=== PATIENT | male | born 1995 | race Caucasian/White ===

== ENCOUNTER 2020-05-19 14:31 | Emergency (ER) | payer BC, SELFPAY ==
--- NOTE | ~2020-05-19 | CT_ITS ---
EXAMINATION: CT brain wo con DATE: 05/19/2020 15:26 INDICATION: Seizure. TECHNIQUE: Computed tomography (CT) of the head was performed without intravenous contrast. The mA wa s adjusted according to patient size. Iterative reconstruction technique was employed. The dose-lengt h product was 605.33 mGy-cm. COMPARISON: None FINDINGS: There is no intracranial hemorrhage, acute infarction, or abnormal intracranial mass lesion . The ventricles are normal in size. The paranasal sinuses are clear. The orbits are normal. The mast oid air cells are normal. IMPRESSION: 1. Normal brain. Reviewed, dictated and finalized at location A. IMPRESSION: 1. Normal brain.
[2020-05-19 14:32] VITALS: BP 126/74; PULSE 129; RESP 20; TEMP 36.9; O2SAT 93
--- NOTE | 2020-05-19 14:33 | ECG_ITS ---
Measurements Intervals [place] Rate: 119 P: 70 [place]: 132 QRS: 89 QRSD: 94 T: -2 QT: 320 QTc: 452 Interpretive Statements SINUS TACHYCARDIA INCOMPLETE RIGHT BUNDLE BRANCH BLOCK BORDERLINE ST-T WAVE ABNORMALITY- INF/LAT LEADS ABNORMAL ECG Electronically Signed On 05-19-2020 14:52:14 CDT by Arnaud Morgan D.O.
--- NOTE | 2020-05-19 14:37 | ED.SEIZURE ---
HPI - Seizure General Chief Complaint: Seizure Stated Complaint: SEIZURE Source: patient Mode of arrival: EMS Limitations: no limitations History of Present Illness HPI Narrative: Patient is a 24-year-old male who presents by EMS with reports of seizure. Per had a witnessed tonic/clonic seizure and was postictal upon arrival. Patient is alert and oriented at this time. He reports a history of seizures as a child. He reports he has not been on antiseizure medicine in at least 5 years and has not had any recent seizures. He reports feeling tired and weak. He denies headache, nausea, dizziness or other complaints. Denies illicit drug or alcohol use. Patient denies complaints at this time. MD complaint: seizure Related Data Home Medications Medication Instructions Recorded Confirmed No Home Medications 05/19/20 05/19/20 Allergies Allergy/AdvReac Type Severity Reaction Status Date / Time No Known Allergies Allergy Verified 05/19/20 14:41 Review of Systems Review of Systems: Narrative: CONSTITUTIONAL: Denies fever, chills, or sweats. EYES: Denies visual changes, redness, or discharge. ENT: Denies rhinorrhea, congestion, sore throat, or otalgia. CARDIOVASCULAR: Denies chest pain, palpitations, or edema. RESPIRATORY: Denies cough or dyspnea. GASTROINTESTINAL: Denies abdominal pain, nausea, vomiting, or diarrhea. GENITOURINARY: Denies dysuria or hematuria. SKIN: Denies rash or itching. MUSCULOSKELETAL: Denies back pain, joint pain, or myalgia. NEUROLOGIC: Denies headache, numbness, dizziness, or weakness. PSYCHIATRIC: Denies anxiety or depression. [facility] Past Medical History Medical History (Updated 05/19/20 @ 16:33 by SERENA Serrato) Seizures Surgical History Surgical History (Updated 05/19/20 @ 14:59 by SERENA Serrato) No significant past surgical history Family History Family History Other No significant family history Social History Social History Smoking status: Never smoker Alcohol intake: current Alcohol use details: Occasional Substance use: never Living arrangements: with family Gender identity (if verbalized by the patient): Male Comments At the time of signature, I have reviewed and agree with nursing past medical, surgical, social, and family history unless otherwise noted. Please see nursing chart for further information. There is no relevant family history pertinent to the presenting complaint. Exam Narrative: Exam Narrative: GENERAL: Well-appearing, well-nourished, and in no acute distress. HEAD: Normocephalic, atraumatic. EYES: EOMI. No redness or drainage. ENT: Mucous membranes pink and moist. CHEST: No respiratory distress. Clear to auscultation. HEART: Regular rate and rhythm. No murmur appreciated. Normal peripheral pulses. GI: Soft, nontender without rebound, or guarding. No distention. MUSCULOSKELETAL: No bony tenderness. EXTREMITIES: Normal range of motion. No edema. SKIN: Warm, dry, no rash. NEURO: No focal deficits. Alert and oriented x3. Gait steady. PSYCH: Normal affect. No signs of depression or anxiety. Course Vital Signs Vital signs: Vital Signs Temperature 36.9 C 05/19/20 14:32 Pulse Rate 129 H 05/19/20 14:32 Respiratory Rate 20 05/19/20 14:32 Blood Pressure 126/74 05/19/20 14:32 Pulse Oximetry 93 05/19/20 14:32 Temperature 36.9 C 05/19/20 14:32 Pulse Rate 99 05/19/20 16:15 Respiratory Rate 28 H 05/19/20 16:15 Blood Pressure 127/90 05/19/20 16:15 Pulse Oximetry 99 05/19/20 16:15 Reviewed MDM - Seizure MDM Narrative Medical decision making narrative: Patient appears nontoxic and in O x3 at this time, mother at bedside. Patient CT is negative, labs are unremarkable. Spoke with Dr. Wharton who recommends patient starting on 250mg of Keppra twice daily and call office in
[2020-05-19 14:39] VITALS: PULSE 120
[2020-05-19 15:15] LABS: Basophils Absolute Auto 0.1 K/mm3 (0.0-0.1); Basophils Percent Auto 0.5 % (0.2-1.2); Eosinophils Absolute Auto 0.1 K/mm3 (0-0.3); Eosinophils Percent Auto 1.2 % (0-4.4); Hematocrit 48.2 % (42.0-52.0); Hemoglobin 16.5 g/dL (14.0-18.0); Immature Granulocyte Absolute 0.39 K/mm3 (0.00-0.031); Immature Granulocyte Percent A 3.5 % (0-0.5); Lymphocytes Absolute Auto 1.53 K/mm3 (0.9-3.2); Lymphocytes Percent Auto 13.9 % (18.3-44.2); Mean Corpuscular HGB Conc 34.2 g/dl (32-36); Mean Corpuscular Hemoglobin 29.7 pg (26-34); Mean Corpuscular Volume 86.8 fl (80-100); Mean Platelet Volume 9.1 fl (7.4-10.4); Monocytes Absolute Auto 0.6 K/mm3 (0.1-0.6); Monocytes Percent Auto 5.4 % (2.6-8.5); Neutrophils Absolute Auto 8.3 K/mm3 (1.3-6.7); Neutrophils Percent Auto 75.5 % (45.5-73.1); Platelet Count Result 295 k/mm3 (150-375); Red Blood Count 5.55 M/mm3 (4.6-6.20); Red Cell Distribution Width 12.5 % (11.5-14.5)
--- NOTE | 2020-05-19 15:21 | PC.NURSE ---
Pt unable to urinate at this time
[2020-05-19 15:34] LABS: Alanine Aminotransferase 32 U/L (4-50); Albumin Level 4.9 g/dL (3.5-5.1); Alkaline Phosphatase 87 U/L (38-126); Anion Gap 6 mmol/L (8-16); Aspartate Amino Transferase 37 U/L (17-59); Bilirubin,Total 2.6 mg/dL (0.2-1.3); Blood Urea Nitrogen 7 mg/dL (9-20); Calcium 9.5 mg/dL (8.4-10.2); Carbon Dioxide 28 mmol/L (22-30); Chloride 104 mmol/L (98-107); Estimated CRCL calculation 98 ml/min; Estimated Glomerular Filt Rate > 60; Glucose 114 mg/dL (75-110); Potassium 4.7 mmol/L (3.4-5.0); Sodium 138 mmol/L (137-145)
[2020-05-19 16:15] VITALS: BP 127/90; PULSE 99; RESP 28; O2SAT 99
[2020-05-19] MEDS: IBUPROFEN IV 800 MG/200 ML 800 MG/200 ML BAG 400 MG IVPB (16:15)
[2020-05-19 16:31] LABS: Add Urine Microscopic? YES; Appearance Urine Clear (Clear); Bilirubin Urine Negative (Negative); Blood Urine 1+ (Negative); Color Urine Yellow (Yellow); Glucose Urine UA Negative (Negative); Ketones Urine Negative (Negative); Leukocyte Esterase Ur Negative LEU/UL (Negative); Mucus Urine Rare /lpf; Nitrate Urine Negative (Negative); Protein Urine 1+ mg/dL (Negative); RBC Urine 0-2 /hpf (0-2); Specific Grav Ur 1.009 (1.001-1.035); Urobilinogen Urine Negative mg/dL (<2.0); WBC Urine 0-3 /hpf
[2020-05-19 16:52] VITALS: BP 112/63; PULSE 98; RESP 17; O2SAT 100
== END 2020-05-19 16:53 | disposition home or self-care (01) ==
PROVIDERS: Emergency Provider Nurse Practitioner
DX: R56.9 Unspecified convulsions (principal); R00.0 Tachycardia, unspecified; I45.10 Unspecified right bundle-branch block; R94.31 Abnormal electrocardiogram [ECG] [EKG]
CPT/HCPCS: 36415; 70450; 80053; 81001; 85025; 93005; 96365; 99284; J1741